=== PATIENT | female | born 1985 | race Caucasian/White ===

== ENCOUNTER 2021-02-12 01:14 | Emergency (ER) | payer MEDICAID ==
[~2021-02-12] VITALS: Ht 162.6 cm; Wt 77.1 kg
[2021-02-12 01:20] VITALS: BP 127/79
[2021-02-12] MEDS ORDERED: methylPREDNISolone SS 125 MG in WATER STERILE 2 ML IV ONE (01:45)
[2021-02-12] MEDS ORDERED: diphenhydrAMINE 50 MG/ML VIAL IVP ONE (01:45)
[2021-02-12] MEDS ORDERED: EPINEPHrine 1 MG/ML AMP SUBQ ONE (01:45)
[2021-02-12] MEDS ORDERED: NACL 0.9% 1,000 ML IV ONE (01:45)
[2021-02-12 02:02] LABS: BASOPHILS % (AUTO) 0.2 % (0.0-2.0); EOSINOPHILS # (AUTO) 0.1 K/uL (0-0.4); EOSINOPHILS % (AUTO) 0.5 % (0.0-4.0); HEMATOCRIT 34.6 % (36-48); HEMOGLOBIN 11.7 g/dL (12.0-16.0); LYMPHOCYTES # (AUTO) 2.3 K/uL (2.5-16.5); LYMPHOCYTES % (AUTO) 14.8 % (20.5-51.1); MEAN CORPUSCULAR HEMOGLOBIN 28 pg (27-31); MEAN CORPUSCULAR HGB CONC 34 g/dL (33-37); MEAN CORPUSCULAR VOLUME 83.8 fL (80-94); MONOCYTES # (AUTO) 1.1 K/uL (0.8-1.0); MONOCYTES % (AUTO) 6.8 % (1.7-9.3); NEUTROPHILS # (AUTO) 12.2 K/uL (1.8-7.7); NEUTROPHILS % (AUTO) 77.7 % (42.2-75.2); PLATELET COUNT (AUTO) 395 K/uL (140-450); RED BLOOD CELL COUNT(AUTO) 4.14 MIL/uL (4.20-5.40); RED CELL DISTRIBUTION WIDTH 13.4 % (11.6-13.7); WHITE BLOOD COUNT (AUTO) 15.7 K/uL (4.8-10.8)
[2021-02-12] MEDS ORDERED: methylPREDNISolone SS 125 MG/2 ML VIAL ONE (02:03)
[2021-02-12] MEDS ORDERED: WATER STERILE 10 ML MC ONE (02:03)
[2021-02-12 02:09] LABS: ANION GAP 17.9 (8-16); CARBON DIOXIDE 21.8 mmol/L (21-32); CREATININE 0.7 mg/dL (0.6-1.3); POTASSIUM 3.7 mmol/L (3.5-5.1)
[2021-02-12 02:15] LABS: ALBUMIN 3.2 g/dL (3.4-5.0); TOTAL BILIRUBIN 0.4 mg/dL (0.0-1.0)
[2021-02-12 03:35] LABS: APPEARANCE,URINE CLEAR (CLEAR); BILIRUBIN,URINE NEGATIVE (NEGATIVE); BLOOD, URINE TRACE-I (NEGATIVE); COLOR,URINE YELLOW (YELLOW); LEUKOCYTE ESTERASE ,URINE TRACE (NEGATIVE); NITRITE, URINE POSITIVE (NEGATIVE); UGLUCOSE 1+ (NEGATIVE)
[2021-02-12 03:41] LABS: RBC,URINE 0-5 /HPF (0-5)
[2021-02-12] MEDS ORDERED: cefTRIAXone 2,000 MG in DEXTROSE 5% 100 ML IV ONE (04:15)
[2021-02-12] MEDS ORDERED: METF-988 PO (04:30)
[2021-02-12] MEDS ORDERED: NITR100C7 PO (04:30)
[2021-02-12] MEDS ORDERED: FEXO180T82 PO (04:32)
[2021-02-12] MEDS ORDERED: cefTRIAXone 2,000 MG VIAL ONE (04:33)
[2021-02-12 05:05] VITALS: BP 127/79
== END 2021-02-12 05:05 | disposition home or self-care (01) ==
LOC: MED 01:14
DX: L50.0 Allergic urticaria (principal); N39.0 Urinary tract infection, site not specified; E11.9 Type 2 diabetes mellitus without complications; I10 Essential (primary) hypertension; Z79.899 Other long term (current) drug therapy
CPT/HCPCS: 36415; 80053; 81001; 82009; 83036; 83605; 84443; 85025; 85651; 86140; 87040; 87086; 96361; 96365; 96372; 96375; 99284; J0171; J0696; J1200; J2930; J7030